=== PATIENT | female | born 1995 | race African-American/Black ===

== ENCOUNTER 2018-03-02 09:07 | Emergency (ER) | payer OTHER ==
[2018-03-02 09:21] VITALS: RESP 18
--- NOTE | 2018-03-02 09:40 | ED ---
Female Urogenital HPI - General Chief complaint: Urogenital Stated complaint: Vaginal Bleeding 9 weeks Time Seen by Provider: 03/02/18 09:26 Source: patient, RN notes reviewed, old records reviewed Mode of arrival: ambulatory Limitations: no limitations - History of Present Illness Initial comments: This patient's a 22-year-old female presents to the emergency department today chief complaint of vaginal bleeding. She reports that she is presently 8- 9 weeks . She follows up with [facility] and Olman Cook. She does not know the exact name of her physician. Patient states that she had some cramping today and had some light vaginal bleeding today. She reports that she did pass some small clots. Patient states that she did have some blood work to confirm , she does not have a follow-up appointment for 2 more weeks. She denies any significant abdominal pain. She relates that she has had normal stoos in urination. - Related Data Home Medications Medication Instructions Recorded Confirmed No Known Home Medications [No 03/02/18 03/02/18 Known Home Medications] Allergies Allergy/AdvReac Type Severity Reaction Status Date / Time No Known Allergies Allergy Verified 03/02/18 09:27 Review of Systems ROS Statement: Those systems with pertinent positive or pertinent negative responses have been documented in the HPI. ROS Other: All systems not noted in ROS Statement are negative. Past Medical History Past Medical History: No Reported History History of Any Multi-Drug Resistant Organisms: None Reported Past Surgical History: No Surgical Hx Reported Past Psychological History: Anxiety, Depression Smoking Status: Never smoker Past Alcohol Use History: None Reported Past Drug Use History: Unable to Obtain General Exam - General Exam Comments Initial Comments: Patient is a 22-year-old female. Alert and oriented. No significant distress. General: Well appearing, well nourished, in no distress. Oriented x 3, normal mood and affect . Ambulating without difficulty. Skin: Good turgor, no rash, unusual bruising or prominent lesions Hair: Normal texture and distribution. HEENT: Head: Normocephalic, atraumatic, no visible or palpable masses, depressions, or scaring. Eyes: Visual acuity intact, conjunctiva clear, sclera non-icteric, EOM intact, PERRL. Pharynx: Mucosa non-inflamed, no tonsillar hypertrophy or exudate Neck: Supple, without lesions, bruits, or adenopathy, thyroid non-enlarged and non-tender Heart: No cardiomegaly or thrills; regular rate and rhythm, no murmur or gallop Lungs: Clear to auscultation and percussion Abdomen: Bowel sounds normal, no tenderness, organomegaly, masses, or hernia Back: Spine normal without deformity or tenderness, no CVA tenderness Extremities: No amputations or deformities, cyanosis, edema or varicosities, peripheral pulses intact Musculoskeletal: Normal gait and station. No misalignment, asymmetry, crepitation, defects, tenderness, masses, effusions, decreased range of motion, instability, atrophy or abnormal strength or tone in the head, neck, spine, ribs , pelvis or extremities. Neurologic: CN 2-12 normal. Sensation to pain, touch, and proprioception normal. DTRs normal in upper and lower extremities. No pathologic reflexes. Psychiatric: Oriented X3, intact recent and remote memory, judgment and insight , normal mood and affect. Pelvic: Vagina and cervix with minor bleeding. Cervix appears closed. Some clots noted. Uterus and adnexa/parametria nontender without masses. Limitations: no limitations Course Vital Signs 03/02/18 03/02/18 09:17 12:15 Temperature 98.8 F 98.6 F Pulse Rate 70 59 L Respiratory 18 18 Rate Blood Pressure 125/85 142/90 O2 Sat by Pulse 100 100 Oximetry Medical Decision Making - Medical Decision Making Patient is a 22-year-old female presents emergency Department today. female , unable to remember OB in [place], [place]. She reports vaginal bleeding today. Possibly to 9 weeks . PAtient has bleeding noted on pelvic exam, no significant tenderness noted. She is O positive blood type. HCG levels are 2800. Discussed this is low for 9 weeks. US shows irregularly marginated accomplice refilled elongated and Intron endometrial fluid this could represent a sac Ectopic or spontaneous . No discrete adnexal masses seen on today's examination of the right ovary is not visualized. Serial ECG to follow-up pelvic ultrasound in 7 days is recommended. She has no tenderness on bimanuel exam. Discussed case with Dr. Paris, and discussed she needs OB follow up. Given referral to Dr. Soto, or she may follow with OB in [place]. Discussed repeat HCG. All question answered and return parameters discused. - Lab Data Result diagrams: 03/02/18 09:45 03/02/18 09:45 Lab Results 03/02/18 03/02/18 03/02/18 Range/Units 09:30 09:45 09:45 WBC 4.2 (3.8-10.6) k/uL RBC 3.89 (3.80-5.40) m/uL Hgb 11.7 (11.4-16.0) gm/dL Hct 34.4 (34.0-46.0) % MCV 88.4 (80.0-100.0) fL MCH 30.1 (25.0-35.0) pg MCHC 34.1 (31.0-37.0) g/dL RDW 12.9 (11.5-15.5) % Plt Count 189 (150-450) k/uL Neutrophils % 58 % Lymphocytes % 30 % Monocytes % 7 % Eosinophils % 3 % Basophils % 1 % Neutrophils # 2.4 (1.3-7.7) k/uL Lymphocytes # 1.3 (1.0-4.8) k/uL Monocytes # 0.3 (0-1.0) k/uL Eosinophils # 0.1 (0-0.7) k/uL Basophils # 0.0 (0-0.2) k/uL Sodium (137-145) mmol/L Potassium (3.5-5.1) mmol/L Chloride (98-107) mmol/L Carbon Dioxide (22-30) mmol/L Anion Gap mmol/L BUN (7-17) mg/dL Creatinine (0.52-1.04) mg/dL Est GFR (CKD-EPI)AfAm (>60 ml/min/1.73 sqM) Est GFR (CKD-EPI)NonAf (>60 ml/min/1.73 sqM) Glucose (74-99) mg/dL Calcium (8.4-10.2) mg/dL Total Bilirubin (0.2-1.3) mg/dL AST (14-36) U/L ALT (9-52) U/L Alkaline Phosphatase (38-126) U/L Total Protein (6.3-8.2) g/dL Albumin (3.5-5.0) g/dL HCG, Quant mIU/mL Urine Color Yellow Urine Appearance Cloudy H (Clear) Urine pH 6.0 (5.0-8.0) Ur Specific [place] 1.029 (1.001-1.035) Urine Protein 1+ H (Negative) Urine Glucose (UA) Negative (Negative) Urine Ketones Negative (Negative) Urine Blood Small H (Negative) Urine Nitrite Negative (Negative) Urine Bilirubin Negative (Negative) Urine Urobilinogen 3.0 (<2.0) mg/dL Ur Leukocyte Esterase Small H (Negative) Urine RBC 4 (0-5) /hpf Urine WBC 19 H (0-5) /hpf Ur Squamous Epith Cells 8 H (0-4) /hpf Urine Mucus Many H (None) /hpf Trichomonas Ag (Rapid) (Negative) Blood Type O Positive Blood Type Recheck No 03/02/18 03/02/18 Range/Units 09:45 10:10 WBC (3.8-10.6) k/uL RBC (3.80-5.40) m/uL Hgb (11.4-16.0) gm/dL Hct (34.0-46.0) % MCV (80.0-100.0) fL MCH (25.0-35.0) pg MCHC (31.0-37.0) g/dL RDW (11.5-15.5) % Plt Count (150-450) k/uL Neutrophils % % Lymphocytes % % Monocytes % % Eosinophils % % Basophils % % Neutrophils # (1.3-7.7) k/uL Lymphocytes # (1.0-4.8) k/uL Monocytes # (0-1.0) k/uL Eosinophils # (0-0.7) k/uL Basophils # (0-0.2) k/uL Sodium 140 (137-145) mmol/L Potassium 4.1 (3.5-5.1) mmol/L Chloride 106 (98-107) mmol/L Carbon Dioxide 23 (22-30) mmol/L Anion Gap 11 mmol/L BUN 6 L (7-17) mg/dL Creatinine 0.65 (0.52-1.04) mg/dL Est GFR (CKD-EPI)AfAm >90 (>60 ml/min/1.73 sqM) Est GFR (CKD-EPI)NonAf >90 (>60 ml/min/1.73 sqM) Glucose 91 (74-99) mg/dL Calcium 9.6 (8.4-10.2) mg/dL Total Bilirubin 0.6 (0.2-1.3) mg/dL AST 16 (14-36) U/L ALT 24 (9-52) U/L Alkaline Phosphatase 38 (38-126) U/L Total Protein 6.5 (6.3-8.2) g/dL Albumin 4.2 (3.5-5.0) g/dL HCG, Quant 2794.7 mIU/mL Urine Color Urine Appearance (Clear) Urine pH (5.0-8.0) Ur Specific [place] (1.001-1.035) Urine Protein (Negative) Urine Glucose (UA) (Negative) Urine Ketones (Negative) Urine Blood (Negative) Urine Nitrite (Negative) Urine Bilirubin (Negative) Urine Urobilinogen (<2.0) mg/dL Ur Leukocyte Esterase (Negative) Urine RBC (0-5) /hpf Urine WBC (0-5) /hpf Ur Squamous Epith Cells (0-4) /hpf Urine Mucus (None) /hpf Trichomonas Ag (Rapid) Negative (Negative) Blood Type Blood Type Recheck - Radiology Data Radiology results: report reviewed Irregularly marginated accomplice refilled elongated and Intron endometrial fluid this could represent a sac Ectopic or spontaneous . No discrete adnexal masses seen on today's examination of the right ovary is not visualized. Serial ECG to follow-up pelvic ultrasound in 7 days is recommended. Disposition Clinical Impression: Threatened miscarriage in early Disposition: HOME SELF-CARE Condition: Good Instructions: Threatened Miscarriage (ED) Additional Instructions: Patient advised to repeat hCG levels in 2 days. Follow-up with [facility] at home or with referral. Repeat US in 1 week. Return to the emergency department if any alarming signs or symptoms occur. Is patient prescribed a controlled substance at d/c from ED?: No When asked, does pt state using other controlled substances?: No If prescribed controlled substance>3 days was MAPS reviewed?: No If opioid is for acute pain is fill amount 7 days or less?: No If Rx opioid, was Start Talking consent form obtained?: No Referrals: None,Stated [Primary Care Provider] - 1-2 days Catrachita Soto DO [Doctor of Osteopathic Medicine] - 1-2 days Time of Disposition: 11:58
[2018-03-02 10:03] LABS: Appearance,Urine Cloudy (Clear); Bilirubin,Urine Negative (Negative); Blood,Urine Small (Negative); Color,Urine Yellow; Glucose,Urine (UA) Negative (Negative); Ketones,Urine Negative (Negative); Leukocyte Esterase,Urine Small (Negative); Mucus,Urine Many /hpf; Nitrite,Urine Negative (Negative); Protein,Urine 1+ (Negative); RBC,Urine 4 /hpf (0-5); Specific Gravity,Urine 1.029 (1.001-1.035); Squamous Epithelial Cell,Urine 8 /hpf (0-4); WBC,Urine 19 /hpf (0-5)
[2018-03-02 10:05] LABS: Basophils % (A) 1 %; Eosinophils # (A) 0.1 k/uL (0-0.7); Eosinophils % (A) 3 %; HCT 34.4 % (34.0-46.0); HGB 11.7 gm/dL (11.4-16.0); Lymphocytes # (A) 1.3 k/uL (1.0-4.8); Lymphocytes % (A) 30 %; MCH 30.1 pg (25.0-35.0); MCHC 34.1 g/dL (31.0-37.0); MCV 88.4 fL (80.0-100.0); Mean Platelet Volume 7.6; Monocytes # (A) 0.3 k/uL (0-1.0); Monocytes % (A) 7 %; Neutrophils # (A) 2.4 k/uL (1.3-7.7); Neutrophils % (A) 58 %; Platelet Count 189 k/uL (150-450); RBC 3.89 m/uL (3.80-5.40); RDW 12.9 % (11.5-15.5); WBC 4.2 k/uL (3.8-10.6)
[2018-03-02 10:12] LABS: ALT 24 U/L (9-52); AST 16 U/L (14-36); Albumin 4.2 g/dL (3.5-5.0); Alkaline Phosphatase 38 U/L (38-126); Anion Gap 11 mmol/L; Blood Urea Nitrogen 6 mg/dL (7-17); Calcium 9.6 mg/dL (8.4-10.2); Carbon Dioxide 23 mmol/L (22-30); Chloride 106 mmol/L (98-107); Glucose 91 mg/dL (74-99); Potassium 4.1 mmol/L (3.5-5.1); Sodium 140 mmol/L (137-145); Total Bilirubin 0.6 mg/dL (0.2-1.3); Total Protein 6.5 g/dL (6.3-8.2)
[2018-03-02 10:52] LABS: HCG,Quantitative Serum 2794.7 mIU/mL
--- NOTE | 2018-03-02 11:24 | US ---
EXAMINATION TYPE: Transabdominal DATE OF EXAM: 12/15/17 COMPARISON: NONE CLINICAL HISTORY: Pelvic pain. EXAM PERFORMED: Transvaginal (TV) and Transabdominal (TA) EXAM MEASUREMENTS: GESTATIONAL AGE / DATING Physician Established: Not yet established Dates by LMP: LMP unknown Dates by First Scan: No previous this is first scan Dates by Current Scan for: Unable to date by today's MATERNAL ANATOMY Uterus: 11.6 x 6.7 x 7.5cm Right Ovary: not visualized Left Ovary: 2.7 x 1.6 x 1.6 Post CDS / Adnexa: wnl Presence of free fluid: no Presence of corpus luteal cyst: no Presence of subchorionic bleed: no GESTATION / SURVEY CRL: no crown rump identified MSD: 2.8 (7 weeks/5 days) Yolk Sac (normal less than 6mm): Not seen IUP: None Date of LMP: Patient states probably the end of December Beta HcG (if available): 2794 Debris filled irregular shaped gestational sac. No pole identified. IMPRESSION: Irregularly marginated complex debris-filled elongated intraendometrial fluid. This could represent a pseudosac of ectopic or spontaneous . No discrete adnexal masses seen on today's examination although the right ovary is not visualized. Serial serum beta hCG and follow-u p pelvic ultrasound in 5-7 days are recommended.
[2018-03-02 12:16] VITALS: BP 142/90; PULSE 59; TEMP 98.6
[2018-03-03 16:10] LABS: C. trachomatis,PCR Positive (Neg,Equiv); Chlamydia trachomatis Source Vagina
[2018-03-03 16:26] LABS: N. gonorrhoeae,PCR Negative (Neg,Equiv); Neisseria Source Vagina
== END 2018-03-02 12:16 | disposition home or self-care (01) ==
LOC: EC 09:07
DX: O20.0 Threatened abortion (principal); Z3A.09 9 weeks gestation of pregnancy
CPT/HCPCS: 36415; 76801; 76817; 80053; 81001; 84702; 85025; 86900; 86901; 87070; 87205; 87491; 87591; 87808; 99284

== ENCOUNTER 2018-03-03 16:38 | Emergency (ER) | payer OTHER ==
[2018-03-03 16:47] VITALS: BP 156/96; PULSE 98; RESP 20; TEMP 98.2
[2018-03-03] MEDS ORDERED: Acetaminophen-Codeine 300-30mg TAB PO STA (16:57)
--- NOTE | 2018-03-03 17:02 | ED ---
General Adult HPI - General Chief complaint: Dental/Oral Stated complaint: Dental Pain Time Seen by Provider: 03/03/18 16:50 Source: patient, RN notes reviewed Mode of arrival: ambulatory Limitations: no limitations - History of Present Illness Initial comments: Patient 22-year-old female presented to the emergency room today with a chief complaint of increased dental pain. Patient states that she saw her dentist today is supposed to have a root canal performed. Patient states that she was given a dental block there but the medicine has worn off. She is having increased pain. She's been using Aleve with states that helped with this pain. Patient denies any drainage or discharge. Denies any other complaints or symptoms. Patient denies any recent fever, chills, shortness of breath, chest pain, back pain, abdominal pain, nausea or vomiting, numbness or tingling, headaches or visual changes, or any other complaints. - Related Data Previous Rx's Medication Instructions Recorded predniSONE 40 mg PO DAILY 5 Days tab 03/03/18 Allergies Allergy/AdvReac Type Severity Reaction Status Date / Time No Known Allergies Allergy Verified 03/03/18 16:47 Review of Systems ROS Statement: Those systems with pertinent positive or pertinent negative responses have been documented in the HPI. ROS Other: All systems not noted in ROS Statement are negative. Past Medical History Past Medical History: No Reported History History of Any Multi-Drug Resistant Organisms: None Reported Past Surgical History: No Surgical Hx Reported Past Psychological History: Anxiety, Depression Smoking Status: Never smoker Past Alcohol Use History: None Reported Past Drug Use History: Unable to Obtain General Exam - General Exam Comments Initial Comments: General: The patient is awake and alert. Eye: Pupils are equal, round and reactive to light, extra-ocular movements are intact. No nystagmus. There is normal conjunctiva bilaterally. No signs of icterus. Ears, nose, mouth and throat: There are moist mucous membranes and no oral lesions. Tender to the gumline of the right lower jaw from tooth 25 back to tooth 30. No sign of abscess. Uvula midline. Patient swallows without any difficulty. Neck: The neck is supple, there is no tenderness or JVD. Musculoskeletal: Normal ROM, no tenderness. Strength 5/5. Sensation intact. Pulses equal bilaterally 2+. Neurological: A&O x 3. CN II-XII intact, There are no obvious motor or sensory deficits. Coordination appears grossly intact. Speech is normal. Skin: Skin is warm and dry and no rashes or lesions are noted. Psychiatric: Cooperative, appropriate mood & affect, normal judgment. Limitations: no limitations Course Vital Signs 03/03/18 16:45 Temperature 98.2 F Pulse Rate 98 Respiratory 20 Rate Blood Pressure 156/96 O2 Sat by Pulse 99 Oximetry Medical Decision Making - Medical Decision Making Patient given a single tablet of Tylenol 3 here the emergency room will be discharged home with a course of steroids. Advised continue anti- inflammatories and follow up with dentist. Disposition Clinical Impression: Pain, dental Disposition: HOME SELF-CARE Condition: Good Instructions: Toothache (ED) Additional Instructions: Please use medication as discussed. Please follow-up with dentist / family doctor in the next 2 days of symptoms have not improved. Please return to emergency room if the symptoms increase or worsen or for any other concerns. Prescriptions: predniSONE 40 mg PO DAILY 5 Days tab Is patient prescribed a controlled substance at d/c from ED?: No Referrals: None,Stated [Primary Care Provider] - 1-2 days Binh Martin DO [STAFF PHYSICIAN] - 1-2 days Cortez Zuniga MD [REFERRING] - 1-2 days Time of Disposition: 17:01
== END 2018-03-03 17:06 | disposition home or self-care (01) ==
LOC: EC 16:38
DX: K08.89 Other specified disorders of teeth and supporting structures (principal)
CPT/HCPCS: 99282

== ENCOUNTER → 2018-03-04 | Outpatient (CLI) | payer OTHER | END | disposition home or self-care (01) | LOC: LABMAIN 19:11 | PROVIDERS: ATTEND Physician Assistant Medical | DX: O20.0 Threatened abortion (principal); Z3A.00 Weeks of gestation of pregnancy not specified | CPT/HCPCS: 36415; 84702 ==

== ENCOUNTER 2018-03-06 06:19 | Emergency (ER) | payer OTHER ==
[2018-03-06] MEDS ORDERED: MORPHINE SULFATE 2 MG/ML SYRINGE IVP STA (06:36)
[2018-03-06] MEDS ORDERED: ONDANSETRON 4 MG/2 ML VIAL IVP STA (06:41)
[2018-03-06 07:01] LABS: Basophils % (A) 0 %; Eosinophils % (A) 0 %; HCT 30.3 % (34.0-46.0); HGB 10.2 gm/dL (11.4-16.0); Lymphocytes # (A) 1.9 k/uL (1.0-4.8); Lymphocytes % (A) 17 %; MCH 29.8 pg (25.0-35.0); MCHC 33.6 g/dL (31.0-37.0); MCV 88.6 fL (80.0-100.0); Mean Platelet Volume 8.5; Monocytes # (A) 0.6 k/uL (0-1.0); Monocytes % (A) 5 %; Neutrophils # (A) 8.3 k/uL (1.3-7.7); Neutrophils % (A) 76 %; Platelet Count 252 k/uL (150-450); RBC 3.41 m/uL (3.80-5.40); RDW 13.3 % (11.5-15.5); WBC 10.9 k/uL (3.8-10.6)
[2018-03-06 07:12] LABS: ALT 19 U/L (9-52); AST 14 U/L (14-36); Albumin 3.8 g/dL (3.5-5.0); Alkaline Phosphatase 41 U/L (38-126); Anion Gap 12 mmol/L; Blood Urea Nitrogen 9 mg/dL (7-17); Calcium 9.5 mg/dL (8.4-10.2); Carbon Dioxide 19 mmol/L (22-30); Chloride 106 mmol/L (98-107); Glucose 137 mg/dL (74-99); Potassium 4.5 mmol/L (3.5-5.1); Sodium 137 mmol/L (137-145); Total Bilirubin 0.4 mg/dL (0.2-1.3); Total Protein 6.1 g/dL (6.3-8.2)
[2018-03-06 07:29] LABS: HCG,Quantitative Serum 895.7 mIU/mL
--- NOTE | 2018-03-06 08:12 | ED ---
General Adult HPI - General Chief complaint: Vaginal Bleeding Stated complaint: Female Time Seen by Provider: 03/06/18 07:44 Source: patient, family, RN notes reviewed, old records reviewed Mode of arrival: ambulatory Limitations: no limitations - History of Present Illness Initial comments: Patient is a pleasant 22-year-old female presenting to the emergency Department with vaginal bleeding. Patient is . Patient believes she is around 9 weeks . Patient has been having bleeding for the past 3 days. Patient started having increased cramping around 12 or 1 AM. Patient has had increased bleeding since around 3 AM. Patient is passing large blood clots. Patient was seen in the emergency department recently and diagnosed with threatened miscarriage. Patient did call her [facility] however has not yet followed up. Patient did receive phone call for positive Chlamydia and did take her antibiotic prescribed for her. - Related Data Home Medications Medication Instructions Recorded Confirmed No Known Home Medications [No 03/06/18 03/06/18 Known Home Medications] Allergies Allergy/AdvReac Type Severity Reaction Status Date / Time No Known Allergies Allergy Verified 03/06/18 06:24 Review of Systems ROS Statement: Those systems with pertinent positive or pertinent negative responses have been documented in the HPI. ROS Other: All systems not noted in ROS Statement are negative. Constitutional: Denies: fever Eyes: Denies: eye pain ENT: Denies: ear pain Respiratory: Denies: cough Cardiovascular: Denies: chest pain Endocrine: Denies: fatigue Gastrointestinal: Denies: abdominal pain Genitourinary: Reports: as per HPI. Denies: dysuria Skin: Denies: lesions Neurological: Denies: headache Past Medical History Past Medical History: No Reported History Additional Past Medical History / Comment(s): chlamydia History of Any Multi-Drug Resistant Organisms: None Reported Past Surgical History: No Surgical Hx Reported Past Psychological History: Anxiety, Depression Smoking Status: Current every day smoker Past Alcohol Use History: Heavy Past Drug Use History: Unable to Obtain General Exam Limitations: no limitations General appearance: alert, in no apparent distress Head exam: Present: atraumatic Eye exam: Present: normal appearance Neck exam: Present: normal inspection Respiratory exam: Present: normal lung sounds bilaterally Cardiovascular Exam: Present: regular rate, normal rhythm GI/Abdominal exam: Present: soft, normal bowel sounds. Absent: distended, tenderness Extremities exam: Present: normal inspection Neurological exam: Present: alert Psychiatric exam: Present: normal affect, normal mood Skin exam: Present: normal color Course Vital Signs 03/06/18 03/06/18 03/06/18 06:21 06:49 07:14 Temperature 98.2 F Pulse Rate 100 Respiratory 20 Rate Blood Pressure 91/52 112/70 O2 Sat by Pulse 99 Oximetry Medical Decision Making - Medical Decision Making Patient reexamined and resting comfortably in bed. Patient refuses pelvic exam. Patient states she is feeling better and comfortable with discharge home. Patient updated on results and need for follow-up with [facility]. Review of chart reveals blood type O+ - Lab Data Result diagrams: 03/06/18 06:43 03/06/18 06:43 Lab Results 03/06/18 03/06/18 03/06/18 Range/Units 06:43 06:43 06:43 WBC 10.9 H (3.8-10.6) k/uL RBC 3.41 L (3.80-5.40) m/uL Hgb 10.2 L (11.4-16.0) gm/dL Hct 30.3 L (34.0-46.0) % MCV 88.6 (80.0-100.0) fL MCH 29.8 (25.0-35.0) pg MCHC 33.6 (31.0-37.0) g/dL RDW 13.3 (11.5-15.5) % Plt Count 252 (150-450) k/uL Neutrophils % 76 % Lymphocytes % 17 % Monocytes % 5 % Eosinophils % 0 % Basophils % 0 % Neutrophils # 8.3 H (1.3-7.7) k/uL Lymphocytes # 1.9 (1.0-4.8) k/uL Monocytes # 0.6 (0-1.0) k/uL Eosinophils # 0.0 (0-0.7) k/uL Basophils # 0.0 (0-0.2) k/uL Sodium 137 (137-145) mmol/L Potassium 4.5 (3.5-5.1) mmol/L Chloride 106 (98-107) mmol/L Carbon Dioxide 19 L (22-30) mmol/L Anion Gap 12 mmol/L BUN 9 (7-17) mg/dL Creatinine 0.64 (0.52-1.04) mg/dL Est GFR (CKD-EPI)AfAm >90 (>60 ml/min/1.73 sqM) Est GFR (CKD-EPI)NonAf >90 (>60 ml/min/1.73 sqM) Glucose 137 H (74-99) mg/dL Calcium 9.5 (8.4-10.2) mg/dL Total Bilirubin 0.4 (0.2-1.3) mg/dL AST 14 (14-36) U/L ALT 19 (9-52) U/L Alkaline Phosphatase 41 (38-126) U/L Total Protein 6.1 L (6.3-8.2) g/dL Albumin 3.8 (3.5-5.0) g/dL HCG, Quant 895.7 mIU/mL Blood Type O Positive Blood Type Recheck No Antibody Screen NEGATIVE Spec Expiration Date 03/09/2018 - 2343 - Radiology Data Radiology results: report reviewed (Fluid and debris in the lower uterine segment extending to an endocervical canal and vagina. No abnormality reported of ovaries or adnexa.) Disposition Clinical Impression: Incomplete Disposition: HOME SELF-CARE Condition: Stable Instructions: Miscarriage (ED) Additional Instructions: Please follow-up with [facility] beginning of the week. Return for increased bleeding, dizziness or passing out, shortness of breath, worsening symptoms or other concerns. Is patient prescribed a controlled substance at d/c from ED?: No Referrals: Romulo Man MD [Primary Care Provider] - 1-2 days Ravi Celaya DO [Doctor of Osteopathic Medicine] - 1-2 days Time of Disposition: 09:16
--- NOTE | 2018-03-06 08:21 | US ---
EXAMINATION TYPE: Ultrasound OB <= 14 weeks fetus DATE OF EXAM: 12/15/17 COMPARISON: 03/02/2018 CLINICAL HISTORY: 22-year-old female Pain. Patient is actively passing clots since 4 am this morning. Patient states being in extreme pain, especially when passing clots. Date of LMP: Unknown, Beta HcG (if available): 895.7 Previous HcG of 2794 on 03/02/2018. EXAM PERFORMED: Transabdominal (TA). Transvaginal deferred due to patient pain and unable to stay s till due to pain FINDINGS: EXAM MEASUREMENTS: GESTATIONAL AGE / DATING Physician Established: Not yet established Dates by LMP: LMP unknown Dates by First Scan: Too early to date by first scan Dates by Current Scan for: Unable to date by today's study MATERNAL ANATOMY Uterus: 9.9 x 5.4 x 5.9 cm Right Ovary: 2.3 x 1.7 x 1.7 cm Left Ovary: 2.7 x 1.8 x 1.6 cm Post CDS / Adnexa: no free fluid Presence of corpus luteal cyst: no GESTATION / SURVEY IUP: None Debris filled irregular shaped elongated fluid seen in the uterine cavity along the ALLISON extending int o cervix and vagina. The fundal endometrium is thickened and heterogeneous at 1.7 cm. The fluid curr ently extends more inferiorly as compared to the prior exam. No YS or CRL identified. Likely some hem orrhagic debris partially distending the vagina. IMPRESSION: 1. Fluid and debris within the lower uterine segment uterine cavity now extends into the endocervical canal and vagina. No gestational sac visualized. Given patient's symptoms and down trending beta hCG , in progress is suggested. Appropriate clinical follow-up recommended. Ultrasound follow-up as indicated.
[2018-03-06] MEDS ORDERED: SODIUM CHLORIDE 0.9% 1,000 ML IV ONE ×2 (09:14)
[2018-03-06 10:05] VITALS: RESP 18
[2018-03-06 11:31] VITALS: BP 99/56; PULSE 87; TEMP 97.9
== END 2018-03-06 11:00 | disposition home or self-care (01) ==
LOC: EC 06:19
DX: O03.4 Incomplete spontaneous abortion without complication (principal); O99.330 Smoking (tobacco) complicating pregnancy, unspecified trimester; F17.200 Nicotine dependence, unspecified, uncomplicated; Z53.29 Procedure and treatment not carried out because of patient's decision for other reasons; Z3A.00 Weeks of gestation of pregnancy not specified
CPT/HCPCS: 36415; 86900; 86901; 80053; 85025; 86850; 84702; 76801; 99284; 96374; 96375; 96361 ×2; J2405; J2270

== ENCOUNTER 2018-03-07 10:48 | Observation (INO) | payer OTHER ==
[2018-03-07] MEDS ORDERED: MORPHINE SULFATE 2 MG/ML SYRINGE IVP ONE (11:13)
[2018-03-07 11:56] LABS: Basophils % (A) 0 %; Eosinophils # (A) 0.1 k/uL (0-0.7); Eosinophils % (A) 1 %; Lymphocytes # (A) 2.7 k/uL (1.0-4.8); Lymphocytes % (A) 35 %; MCH 29.2 pg (25.0-35.0); MCHC 32.8 g/dL (31.0-37.0); Mean Platelet Volume 7.3; Monocytes # (A) 0.5 k/uL (0-1.0); Monocytes % (A) 6 %; Neutrophils # (A) 4.3 k/uL (1.3-7.7); Neutrophils % (A) 55 %; Platelet Count 170 k/uL (150-450); RBC 1.86 m/uL (3.80-5.40); RDW 13.6 % (11.5-15.5); WBC 7.7 k/uL (3.8-10.6)
[2018-03-07 11:59] LABS: HCT 16.5 % (34.0-46.0); HGB 5.4 gm/dL (11.4-16.0)
[2018-03-07 12:02] LABS: ALT 21 U/L (9-52); AST 10 U/L (14-36); Albumin 2.5 g/dL (3.5-5.0); Alkaline Phosphatase 27 U/L (38-126); Anion Gap 6 mmol/L; Blood Urea Nitrogen 9 mg/dL (7-17); Carbon Dioxide 23 mmol/L (22-30); Chloride 108 mmol/L (98-107); Glucose 86 mg/dL (74-99); Potassium 3.4 mmol/L (3.5-5.1); Sodium 137 mmol/L (137-145); Total Bilirubin 0.3 mg/dL (0.2-1.3); Total Protein 4.4 g/dL (6.3-8.2)
[2018-03-07 12:19] LABS: HCG,Quantitative Serum 507.5 mIU/mL
--- NOTE | 2018-03-07 12:28 | ED ---
Female Urogenital HPI <Kuldeep Paris - Last Filed: 03/07/18 12:58> - General Source: patient, RN notes reviewed, old records reviewed Mode of arrival: EMS Limitations: no limitations <Katina Vance - Last Filed: 03/07/18 13:41> - General Chief complaint: Vaginal Bleeding Stated complaint: Miscarriage Time Seen by Provider: 03/07/18 10:50 - History of Present Illness Initial comments: 20-year-old female present which complaint of increased vaginal bleeding and cramping. She is approximately 7 weeks pending. She's been here multiple times the emergency department this week for she's done with this . Patient reports that over the past 24 she's had severe bleeding and feeling dizzy. She reports significant pain and cramping. Patient reports her [facility]' s physician Olman Cook. [facility] (Katina Vance) - Related Data Home Medications Medication Instructions Recorded Confirmed No Known Home Medications [No 03/06/18 03/07/18 Known Home Medications] Allergies Allergy/AdvReac Type Severity Reaction Status Date / Time No Known Allergies Allergy Verified 03/07/18 10:58 Review of Systems ROS Other: All systems not noted in ROS Statement are negative. <Kuldeep Paris - Last Filed: 03/07/18 12:58> ROS Other: All systems not noted in ROS Statement are negative. <Katina Vance - Last Filed: 03/07/18 13:41> ROS Statement: Those systems with pertinent positive or pertinent negative responses have been documented in the HPI. Past Medical History Past Medical History: No Reported History Additional Past Medical History / Comment(s): chlamydia History of Any Multi-Drug Resistant Organisms: None Reported Past Surgical History: No Surgical Hx Reported Past Psychological History: Anxiety, Depression Smoking Status: Current every day smoker Past Alcohol Use History: Occasional Past Drug Use History: None Reported <Katina Vance - Last Filed: 03/07/18 13:41> General Exam <Kuldeep Paris - Last Filed: 03/07/18 12:58> Limitations: no limitations General appearance: alert, in no apparent distress Head exam: Present: atraumatic, normocephalic, normal inspection Eye exam: Present: normal appearance, PERRL, EOMI. Absent: scleral icterus, conjunctival injection, periorbital swelling ENT exam: Present: normal exam, mucous membranes moist Neck exam: Present: normal inspection. Absent: tenderness, meningismus, lymphadenopathy Respiratory exam: Present: normal lung sounds bilaterally. Absent: respiratory distress, wheezes, rales, rhonchi, stridor Cardiovascular Exam: Present: regular rate, normal rhythm, normal heart sounds. Absent: systolic murmur, diastolic murmur, rubs, gallop, clicks GI/Abdominal exam: Present: soft, normal bowel sounds. Absent: distended, tenderness, guarding, rebound, rigid External exam: Present: normal external exam Speculum exam: Present: vaginal bleeding (Severe heavy bleeding with clots. I believe patient passed placenta on Exam. After clotting clears, I believe I can see retained POC. ). Absent: normal speculum exam By manual exam: Present: cervical motion tenderness. Absent: normal by manual exam Extremities exam: Present: normal inspection, full ROM, normal capillary refill. Absent: tenderness, pedal edema, joint swelling, calf tenderness Back exam: Present: normal inspection Neurological exam: Present: alert, oriented X3, CN II-XII intact Psychiatric exam: Present: normal affect, normal mood Skin exam: Present: warm, dry, intact, normal color. Absent: rash <Katina Vance - Last Filed: 03/07/18 13:41> - General Exam Comments Initial Comments: 20-year-old female. The Patient is -[place]. She does appear in moderate discomfort. (Katina Vance) Course <Kuldeep Paris - Last Filed: 03/07/18 12:58> <Katina Vance - Last Filed: 03/07/18 13:41> Vital Signs 03/07/18 03/07/18 03/07/18 10:53 12:49 13:32 Temperature 99.2 F 99.0 F Pulse Rate 82 84 84 Respiratory 18 16 20 Rate Blood Pressure 102/55 100/60 93/50 O2 Sat by Pulse 98 100 100 Oximetry - Reevaluation(s) Reevaluation #1: 03/07/18 12:58 Patient was earlier evaluated by myself, Dr. Paris. Patient resting comfortably in bed. Abdomen soft and nontender. Patient states bleeding has improved at this time. PA did evaluate patient's pad without much blood. Dr. Miller was paged and did come in to see the patient. He is ordering repeat ultrasound. Blood has already been ordered and blood bank was notified of stat need for blood. (Kuldeep Paris) 03/07/18 12:52 Dr. Miller's and to examine the Patient at this time. (Katina Vance) Medical Decision Making - Lab Data Result diagrams: 03/07/18 11:20 03/07/18 11:20 <Kuldeep Paris - Last Filed: 03/07/18 12:58> - Lab Data Result diagrams: 03/07/18 11:20 03/07/18 11:20 - Radiology Data Radiology results: report reviewed <Katina Vance - Last Filed: 03/07/18 13:41> - Medical Decision Making 20-year-old female presents with vaginal bleeding and cramping patient's concern for miscarriage. She was seen yesterday and her hemoglobin was 10. Today her hemoglobin is 5.4. 2 units of PRBCs have been ordered. I discussed case with Dr. Miller he will contact him and the Patient. On my pelvic exam I did see severe clotting and heavy vaginal bleeding. After this clot was removed do think that there are part of his conception within the cervix. Dr. Miller did come in to evaluate the Patient, we will be doing an ultrasound. We will need to admit the Patient for observation for repeat CBC after the significant drop in hemoglobin. I will let the Patient under observation under Dr. Pearson. After the ultrasound it is evident that there are retained particles of conception. A D&C will be performed by Dr. Pearson. Patient meets inpatient criteria at this time. (Katina Vance) - Lab Data Lab Results 03/07/18 03/07/18 03/07/18 Range/Units 11:20 11:20 11:20 WBC 7.7 (3.8-10.6) k/uL RBC 1.86 L (3.80-5.40) m/uL Hgb 5.4 L* D (11.4-16.0) gm/dL Hct 16.5 L* (34.0-46.0) % MCV 89.0 (80.0-100.0) fL MCH 29.2 (25.0-35.0) pg MCHC 32.8 (31.0-37.0) g/dL RDW 13.6 (11.5-15.5) % Plt Count 170 (150-450) k/uL Neutrophils % 55 % Lymphocytes % 35 % Monocytes % 6 % Eosinophils % 1 % Basophils % 0 % Neutrophils # 4.3 (1.3-7.7) k/uL Lymphocytes # 2.7 (1.0-4.8) k/uL Monocytes # 0.5 (0-1.0) k/uL Eosinophils # 0.1 (0-0.7) k/uL Basophils # 0.0 (0-0.2) k/uL Sodium 137 (137-145) mmol/L Potassium 3.4 L (3.5-5.1) mmol/L Chloride 108 H (98-107) mmol/L Carbon Dioxide 23 (22-30) mmol/L Anion Gap 6 mmol/L BUN 9 (7-17) mg/dL Creatinine 0.59 (0.52-1.04) mg/dL Est GFR (CKD-EPI)AfAm >90 (>60 ml/min/1.73 sqM) Est GFR (CKD-EPI)NonAf >90 (>60 ml/min/1.73 sqM) Glucose 86 (74-99) mg/dL Calcium 8.0 L (8.4-10.2) mg/dL Total Bilirubin 0.3 (0.2-1.3) mg/dL AST 10 L (14-36) U/L ALT 21 (9-52) U/L Alkaline Phosphatase 27 L (38-126) U/L Total Protein 4.4 L (6.3-8.2) g/dL Albumin 2.5 L (3.5-5.0) g/dL HCG, Quant 507.5 mIU/mL Blood Type O Positive Blood Type Recheck No Antibody Screen NEGATIVE Crossmatch See Detail Spec Expiration Date 03/10/2018 - 7844 Disposition <Kuldeep Paris - Last Filed: 03/07/18 12:58> Is patient prescribed a controlled substance at d/c from ED?: No When asked, does pt state using other controlled substances?: No If prescribed controlled substance>3 days was MAPS reviewed?: No If opioid is for acute pain is fill amount 7 days or less?: No If Rx opioid, was Start Talking consent form obtained?: No Time of Disposition: 13:15 <Katina Vance - Last Filed: 03/07/18 13:41> Clinical Impression: Anemia due to blood loss, Incomplete Disposition: ADMITTED IP TO THIS [facility] Condition: Stable Referrals: Romulo Man MD [Primary Care Provider] - 1-2 days
[2018-03-07] MEDS ORDERED: SODIUM CHLORIDE 0.9% 1,000 ML IV ONE ×2 (12:31→14:35)
[2018-03-07] MEDS ORDERED: SODIUM CHLORIDE 0.9% 1,000 ML IV SCH (12:45)
[2018-03-07] MEDS ORDERED: LORazepam 2 MG/ML INJ IV PRN (13:15)
[2018-03-07] MEDS ORDERED: ONDANSETRON 4 MG/2 ML VIAL IVP PRN ×2 (13:15→14:56)
[2018-03-07] MEDS ORDERED: NALOXONE 0.4 MG/ML 1 ML VIAL IV PRN (13:15)
[2018-03-07] MEDS ORDERED: Acetaminophen-Codeine 300-30mg TAB PO PRN (13:15)
[2018-03-07] MEDS ORDERED: ACETAMINOPHEN TAB 325 MG TAB PO PRN (13:15)
--- NOTE | 2018-03-07 13:50 | P.HPOB ---
History of Present Illness H&P Date: 03/07/18 Chief Complaint: Missed AB Patient is a 22-year-old at approximately 7-8 weeks gestation who has a demise or blighted ovum. Ultrasounds have been done showing no viable fetus and the baby hCGs have been decreasing. However she comes in today having very heavy vaginal bleeding or hematoma yesterday was 10 and today this 5. She is receiving 2 units of packed red blood cells through the emergency room at this time. A stat ultrasound was done again this afternoon at her request. I discussed with her just moving forward with a suction D&C to complete the process but she wanted to make sure that there was nothing and her uterus because she really didn't want surgery if she didn't have to have it. However deal sounds verify is a large gestational sac with septations. We'll move forward with a suction D&C at this time. Risks/benefits/alternatives were reviewed with the patient in detail including but not limited to bleeding and infection as well as perforation. There is also still a possibility that she did have scarring developed following this type of procedure resulting in difficulty or not being able to get in the future. She does [place] also have a history of chlamydia but she describes it is being treated. As an option we may give her dose of antibiotics just as a precaution. 2 much blood is present for any other cultures to be done. Past Medical History Past Medical History: No Reported History Additional Past Medical History / Comment(s): chlamydia History of Any Multi-Drug Resistant Organisms: None Reported Past Surgical History: No Surgical Hx Reported Past Psychological History: Anxiety, Depression Smoking Status: Current every day smoker Past Alcohol Use History: Occasional Past Drug Use History: None Reported Medications and Allergies Home Medications Medication Instructions Recorded Confirmed Type No Known Home Medications [No 03/06/18 03/07/18 History Known Home Medications] Allergies Allergy/AdvReac Type Severity Reaction Status Date / Time No Known Allergies Allergy Verified 03/07/18 10:58 Exam Osteopathic Statement: *. No significant issues noted on an osteopathic structural exam other than those noted in the History and Physical/Consult. - Vital Signs Vital signs: Vital Signs Temp Pulse Resp BP Pulse Ox 03/07/18 13:39 99.3 F 85 20 99/57 03/07/18 13:32 84 20 93/50 100 03/07/18 12:49 99.0 F 84 16 100/60 100 03/07/18 10:53 99.2 F 82 18 102/55 98 Intake and Output 03/06/18 03/07/18 03/07/18 22:59 06:59 14:59 Intake Total 0 Balance 0 Intake: Blood Product 0 Rc As-1 Unit 0 [id number] Other: Weight 93.894 kg - OBG Physical Exam Abdomen: bowel sounds normal, no diffuse tenderness, no bruit present, no guarding noted, no hepatomegaly, no splenomegaly, no mass Vulva: both: normal Vagina: normal moisture, no discharge Cervix: Cervix is dilated Cervix: no lesion, no discharge Uterus: enlarged (Due to ) Results Result Diagrams: 03/07/18 11:20 03/07/18 11:20 Abnormal Lab Results - Last 24 Hours (Table) 03/07/18 03/07/18 03/07/18 Range/Units 11:20 11:20 11:20 RBC 1.86 L (3.80-5.40) m/uL Hgb 5.4 L* D (11.4-16.0) gm/dL Hct 16.5 L* (34.0-46.0) % Potassium 3.4 L (3.5-5.1) mmol/L Chloride 108 H (98-107) mmol/L Calcium 8.0 L (8.4-10.2) mg/dL AST 10 L (14-36) U/L Alkaline Phosphatase 27 L (38-126) U/L Total Protein 4.4 L (6.3-8.2) g/dL Albumin 2.5 L (3.5-5.0) g/dL Crossmatch See Detail
--- NOTE | 2018-03-07 14:32 | US ---
EXAMINATION TYPE: Transabdominal DATE OF EXAM: 12/15/17 COMPARISON: US x 2, most recent exams are dated 03/02/2018 and 03/06/2018 CLINICAL HISTORY: Pain. EC patient with continued vaginal bleeding, pelvic pain and cramping in t rimester; low Hgb EXAM PERFORMED: Transvaginal (TV) and Transabdominal (TA) EXAM MEASUREMENTS: GESTATIONAL AGE / DATING Physician Established: Not yet established Dates by LMP: LMP unknown Dates by First Scan: unable to date Dates by Current Scan for: complex area within as gestational sac = (7 weeks/0 days) EDC: 10/24/2018 MATERNAL ANATOMY Uterus: 9.8 x 6.1 x 5.9cm Right Ovary: 2.4 x 2.1 x 1.8cm Left Ovary: 2.8 x 2.3 x 2.4cm Post CDS / Adnexa: wnl Presence of free fluid: no Presence of corpus luteal cyst: possibly in left ovary = 1.9 x 1.9 x 1.9cm with peripheral ring of co bulmaro flow Presence of subchorionic bleed: complex area within endometrium and extending into ALLISON = 4.2 x 1.8 x 1.4cm and may be gestational sac with no pole or yolk sac identified within. GESTATION / SURVEY MSD: 2.3cm (7 weeks/0 days) Yolk Sac (normal less than 6mm): not seen Date of LMP: unknown Beta HcG (if available): 507.5 IMPRESSION: 1. Intrauterine gestational sac appears complex. pole is not identified. Yolk sac is not identi fied. Consider blighted ovum. in progress should be considered. Based on what appears to be the gestational sac, the mean sac diameter measurements would place the estimated gestational age of 7 weeks 0 days. This is less than previous estimates. [place]-rump length, Cardiac activity are typical ly identified at this gestational age by transvaginal sonography. 2. Complex left ovarian cyst. Ectopic is not excluded. 3. Close correlation with beta-hCG and follow-up is recommended.
[2018-03-07] MEDS ORDERED: fentaNYL (PF) 50 MCG/ML 2 ML AMP ONE (14:35)
[2018-03-07] MEDS ORDERED: MIDAZOLAM 2 MG/2 ML VIAL ONE (14:35)
[2018-03-07] MEDS ORDERED: ONDANSETRON 4 MG/2 ML VIAL ONE (14:35)
[2018-03-07] MEDS ORDERED: PROPOFOL 10 MG/ML 20 ML VIAL IV ONE (14:35)
[2018-03-07] MEDS ORDERED: LIDOCAINE 1% INJ 10MG/ML (20 ML MDV) ONE (14:35)
[2018-03-07] MEDS ORDERED: OXYTOCIN 10 UNIT/ML 1 ML VIAL ONE (14:35)
[2018-03-07] MEDS ORDERED: KETOROLAC 30 MG/ML 1 ML VIAL IVP PRN (14:56)
--- NOTE | 2018-03-07 15:00 | P.OP ---
Date of Procedure: 03/07/18 Preoperative Diagnosis: Missed AB Postoperative Diagnosis: Same Procedure(s) Performed: Suction D&C Anesthesia: MARCELAA Surgeon: Ravi Celaya Estimated Blood Loss (ml): 50 Pathology: other (Uterine curettings) Condition: stable Disposition: floor Operative Findings: Large quantity of products of conception Description of Procedure: Patient was taken to the operating suite where a general anesthetic was found be adequate. She was prepped and draped in the normal sterile fashion and placed in the dorsal lithotomy position. Initially weighted speculum was inserted into the vagina and the anterior lip of cervix identified and grasped with an Allis clamp. Cervix was then dilated and using a 9 curved tip catheter tip the suction device was placed and suction was applied. 2 passes in a clockwise motion of rotation was were done to remove tissue significant quantity of tissue came without and was sent to pathology. It is also noted the conclusion of those 2 passes I did to gentle sharp curettings of the endometrial lining with significant amount of more tissue coming back. I questions to whether not she might have been further long as her was more tissue than what I would expect for 77 weeks gestation. Once this was done I did do 2 more passes with the suction tip curette and the first pass quite a bit of tissue came the second pass virtually no tissue or blood products came. No bleeding was noted the conclusion the procedure. Incidents were then removed. Sponge, lap, needle counts were correct 2. Patient was then taken to the recovery room in stable and satisfactory condition.
[2018-03-07 16:21] VITALS: BMI 35.5
[2018-03-07 20:21] LABS: Basophils % (A) 0 %; Eosinophils # (A) 0.1 k/uL (0-0.7); Eosinophils % (A) 1 %; HCT 20.5 % (34.0-46.0); Lymphocytes # (A) 3.7 k/uL (1.0-4.8); Lymphocytes % (A) 44 %; MCH 30.3 pg (25.0-35.0); MCHC 34.7 g/dL (31.0-37.0); MCV 87.3 fL (80.0-100.0); Mean Platelet Volume 7.6; Monocytes # (A) 0.6 k/uL (0-1.0); Monocytes % (A) 7 %; Neutrophils % (A) 47 %; Platelet Count 139 k/uL (150-450); RBC 2.35 m/uL (3.80-5.40); RDW 14.2 % (11.5-15.5); WBC 8.5 k/uL (3.8-10.6)
[2018-03-07 20:22] LABS: HGB 7.1 gm/dL (11.4-16.0)
--- NOTE | 2018-03-08 07:05 | P.DS ---
Providers Date of admission: 03/07/18 13:00 Expected date of discharge: 03/08/18 Attending physician: Ravi Celaya Primary care physician: Romulo Sibley [place] [facility] Course: Patient seen and evaluated postop day 1 from suction D&C. Her bleeding has essentially stopped and she is feeling well. Vital signs are stable with blood pressure in the 130s over 70s. Her tachycardia is also resolved and her heart rate is down 70s. We'll plan discharged home today she'll follow up with me in 1 week. Prescription for Motrin and iron tablets have been provided and she will initiate that therapy immediately. All the questions are answered for her at this time. Her heart is otherwise regular, lungs are clear, extremities without pain. She is asymptomatic of her anemia which was noted be 7.1 following 2 units of blood in transfusion. As she is asymptomatic and has no other signs or symptoms we'll plan discharged home without giving any further blood and wax due to risks of same. Patient Condition at Discharge: Good Plan - Discharge Summary New Discharge Prescriptions: New Ibuprofen [Motrin] 600 mg PO Q6HR PRN #30 tab PRN Reason: Pain No Action RX: Amoxicillin 500 mg PO Q8H Discharge Medication List RX: Amoxicillin 500 mg PO Q8H 03/07/18 [History] Ibuprofen [Motrin] 600 mg PO Q6HR PRN #30 tab 03/08/18 [Rx] Follow up Appointment(s)/Referral(s): Romulo Man MD [Primary Care Provider] - 1-2 days Ravi Celaya DO [Doctor of Osteopathic Medicine] - 1 Week Activity/Diet/Wound Care/Special Instructions: No heavy lifting, limit stairs and driving, and pelvic rest. If any high temperatures, heavy bleeding, or severe pain call my office Discharge Disposition: HOME SELF-CARE
[2018-03-08 15:20] VITALS: BP 121/82; PULSE 77; RESP 16; TEMP 98.1
== END 2018-03-08 15:51 | disposition home or self-care (01) ==
LOC: EC 10:48 → 6PED 13:00 → INTOOBSV 13:00 → 6PED 14:09 → 4FBP 15:11 → UNDODISIN 03-08 15:51
PROVIDERS: ADMIT Obstetrics & Gynecology; ATTEND Obstetrics & Gynecology
PROC: 30233N1 Transfusion of Nonautologous Red Blood Cells into Peripheral Vein, Percutaneous Approach (ICD-10-PCS; 2018-03-07)
PROC: 10D17ZZ Extraction of Products of Conception, Retained, Via Natural or Artificial Opening (ICD-10-PCS; principal; 2018-03-07 14:30)
DX: O03.1 Delayed or excessive hemorrhage following incomplete spontaneous abortion (principal); D50.0 Iron deficiency anemia secondary to blood loss (chronic); F17.200 Nicotine dependence, unspecified, uncomplicated; Z3A.01 Less than 8 weeks gestation of pregnancy; Z86.19 Personal history of other infectious and parasitic diseases
CPT/HCPCS: 59812; 36430; 96360; 99285; 36415; 86900; 86901; 88305; 80053; 85025; 86850; 86920; 84702; 93975; 76801; 76817; G0378 ×3; P9016; J2250; J2590; J2405; J2001; J3010; J1885; J2704

== ENCOUNTER → 2018-12-10 | Outpatient (CLI) | payer OTHER ==
--- NOTE | 2018-12-10 20:31 | US ---
EXAMINATION TYPE: US OB anatomy transabd DATE OF EXAM: 12/10/2018 COMPARISON: None HISTORY: Z34.80 Supervision for normal Anatomy per order TECHNIQUE: Transvaginal (TV) and Transabdominal (TA) EXAM MEASUREMENTS: GESTATIONAL AGE / DATING Dates by LMP: (27 weeks/3 days) EDC: 03/08/2019 Dates by Current Scan for: (25 weeks/4 days) EDC: 03/21/2019 SURVEY IUP: Single PLACENTA: Anterior PREVIA: No previa CASSY: 18.0 cm Normal CERVICAL LENGTH (transabdominal: norm > 3.0cm): 2.3 cm CERVICAL LENGTH (transvaginal: norm> 2.5cm): 3.5 cm (Supplemental transvaginal imaging performed to verify cervical length.) BIOMETRY PRESENTATION: Breech BPD: 6.3 cm 25 weeks / 4 days HC: 23.6 cm 25 weeks / 4 days AC: 22.3 cm 26 weeks / 5 days FL: 4.8 cm 26 weeks / 0 days ESTIMATED WEIGHT IN GRAMS: 919.3 grams ESTIMATED WEIGHT IN LBS/OZ: 2 lbs. 0 oz. WEIGHT PERCENTAGE BASED ON ESTABLISHED DATE: 7.9 % HC/AC: 1.1 Normal FL/AC: 21.4 Normal HEART RATE: 160 bpm RHYTHM: Normal ANATOMY SEEN (within normal limits): * Lateral Vent (< 1 cm) 0.4 cm * Cisterna Magna (< 1.1 cm) 0.5 cm * Cerebellum (varies with age) 2.8 cm Choroid Plexus (bilateral) Midline Falx Cavus Septi Pellucidi Four Chamber Heart Outflow tracts: LVOT/RVOT Stomach Situs Nose / Lips Diaphragm Kidneys (bilateral) Bladder Cord Insert Three Vessel Cord Longitudinal Spine Transverse Spine Arms (bilateral) Legs (bilateral) ANATOMY SEEN (does not appear within normal limits): ANATOMY NOT SEEN: * Nuchal Fold (< 0.6 cm) Not visualized due to gestational age Single viable IUP measuring 25 weeks 4 days. Transvaginal imaging performed due to cervix appearing short transabdominally. IMPRESSION: Single viable intrauterine of 25 weeks 4 days with an EDC of 03/21/2019. Although the cervica l length appear to be somewhat shortened on transabdominal imaging measuring 2.3 cm it measured withi n normal limits normal limits on transvaginal imaging at 3.5 cm. Correlate clinically.
== END ==
LOC: RADUSWWP 16:18
PROVIDERS: ATTEND Obstetrics & Gynecology
DX: Z34.80 Encounter for supervision of other normal pregnancy, unspecified trimester (principal); Z3A.25 25 weeks gestation of pregnancy
CPT/HCPCS: 76811; 76817

== ENCOUNTER 2019-03-07 17:53 | Outpatient (CLI) | payer OTHER ==
[2019-03-07 18:24] VITALS: BP 125/79; PULSE 72; RESP 18; TEMP 98.2
--- NOTE | 2019-03-29 09:09 | P.MSEPDOC ---
Presenting Problems - Arrival Data Date of Arrival on Unit: 03/07/19 Time of Arrival on Unit: 17:55 Mode of Transport: Wheelchair - Complaint OB-Reason for Admission/Chief Complaint: Decreased Movement Comment: states intrauterine growth syndrome per dr stallings. Medical History - Information : 3 Para: 1 Term: 1 : 0 Abortions: Spontaneous or Elective: 1 Number of Living Children: 1 - Gestational Age Gestational Age by LAURA (wks/days): 39 Weeks and 1 Days Review of Systems - Review of Systems Constitutional: No problems Breast: No problems ENT: No problems Cardiovascular: No problems Respiratory: No problems Gastrointestinal: No problems Genitourinary: No problems Musculoskeletal: No problems Neurological: No problems Skin: No problems Vital Signs - Temperature Temperature: 98.2 F Temperature Source: Oral - Pulse Right Brachial Pulse Rate: 72 Pulse Assessment Method: Automatic Cuff - Respirations Respiratory Rate: 18 Oxygen Delivery Method: Room Air O2 Sat by Pulse Oximetry: 100 - Blood Pressure Right Arm Blood Pressure: 125/79 Blood Pressure Mean: 94 Blood Pressure Source: Automatic Cuff Medical Screen Scoring (Pre) - Cervical Exam Dilation: Exam Deferred Effacement: Exam Deferred Membranes: Intact - Uterine Contractions Frequency: N/A Duration: N/A Intensity: N/A - Maternal Vital Signs Maternal Temperature: N/A Maternal Blood Pressure: N/A Signs of Preeclampsia: N/A Maternal Respirations: N/A - Maternal Trauma Maternal Trauma: N/A - Assessment - Baby A Baseline FHR: 130 Heart Rate - NICHD Category: Category I (Normal) = 0 NST: Reactive Position: N/A Station: N/A - Total Score - Baby A Total Score - Baby A: 0 - Total Score - Baby B Total Score - Baby B: 0 - Total Score - Baby C Total Score - Baby C: 0 - Level of Risk - Baby A Level of Risk - Baby A: Low (0-5) - Level of Risk - Baby B Level of Risk - Baby B: Low (0-5) - Level of Risk - Baby C Level of Risk - Baby C: Low (0-5) Physician Notification (Pre) - Physician Notified Physician Notified Date: 03/07/19 Physician Notified Time: 18:20 Physician/Practitioner Notifed:: yes Spoke With: yoan New Order Received: Yes - Notification Comment Comment: discharge home. to keep sched appt with dr stallings on . Disposition - Disposition OB Disposition: Discharge to home Discharge Date: 03/07/19 Discharge Time: 18:29 I agree with the RN Medical Screening Exam: Yes Risk & Benefit of care provided described in d/c instruction: Yes Diagnosis: DECREASED MOVEMENTS, THIRD TRIMESTER, FETUS 1
== END 2019-03-07 18:40 | disposition home or self-care (01) ==
LOC: FBPOP 17:53
PROVIDERS: ATTEND Obstetrics & Gynecology Obstetrics
DX: O36.8121 Decreased fetal movements, second trimester, fetus 1 (principal); Z3A.39 39 weeks gestation of pregnancy
CPT/HCPCS: 59025; G0463; 99213

== ENCOUNTER → 2024-06-11 | Outpatient (CLI) | payer OTHER ==
[2024-06-13 14:22] LABS: HIV 2 AB Non-Reactive (Non-Reactive); HIV AB P24 Non-Reactive (Non-Reactive); HIV P24 AG Non-Reactive (Non-Reactive)
== END | disposition home or self-care (01) ==
LOC: LABWHC1 11:50
PROVIDERS: ATTEND Nurse Practitioner Family
DX: B00.9 Herpesviral infection, unspecified (principal); A64 Unspecified sexually transmitted disease
CPT/HCPCS: 36415; 86780; 87390; 87529